=== PATIENT | female | born 1990 | race Caucasian/White ===

== ENCOUNTER 2020-11-05 16:23 | Outpatient (REF) | payer OTHER, SELFPAY ==
--- NOTE | 2020-11-05 | XR_ITS ---
EXAMINATION: CHEST 2 VIEWS CLINICAL INFORMATION: Cough. COMPARISON: None. TECHNIQUE: PA and lateral views of the chest were obtained. FINDINGS: The cardiac silhouette is not enlarged. The mediastinal and hilar contours are unremarkable. There are neither pleural effusions nor pneumothoraces. There are no consolidations. The osseous structures are unremarkable. XR/XR chest 2V IMPRESSION: No evidence for acute disease.
== END 2020-11-05 16:24 | disposition home or self-care (01) ==
LOC: HO.XRAY 16:23
DX: R05 Cough (principal)
CPT/HCPCS: 71046